=== PATIENT | female | born 1940 | race Caucasian/White ===

== ENCOUNTER 2016-12-04 18:30 | Emergency (ER) | payer MEDICARE, MEDICAID ==
[2016-12-04] MEDS ORDERED: Albuterol/Ipratropium Neb 3 ML NEB NEB ONE (18:34)
[2016-12-04] MEDS ORDERED: SODIUM CHLORIDE 0.9% 10 ML FLUSH FLUSH PRN (18:34)
[2016-12-04] MEDS ORDERED: METHYLPREDNISOLONE 125 MG/2 ML VIAL IV ONE (18:34)
--- NOTE | 2016-12-04 18:40 | EDPRACDOC ---
- General Information Information Source: Patient Mode Of Arrival: Ambulance - History of Present Illness Onset: today Exact Onset of Symptoms: Unknown HPI: Pt sent to ED for low hgb and bp. Pt c/o white productive cough, sob, R neck and back pain, generalized weakness. Denies congestion, cp, abd pain, n/v, changes in bowel or bladder, leg swelling. Symptoms Started: Reports: Gradually Symptoms Description: Constant Weakness: Bilateral: Generalized Symptoms: Reports: Weak Symptom Severity: Reports: Unable to performs ADL's Relevant History of: Reports: Anemia Associated signs and symptoms:: Reports: None <Pat Blanco E - Last Filed: 12/04/16 19:23> <Rissa Cunha - Last Filed: 12/04/16 20:34> - General Information Stated Complaint: ABNORMAL LABS Time Seen by Provider: 12/04/16 18:34 Home Medications: Home Medications PEG-Electrolytes (Miralax) [Miralax] 17 gm PO DAILY PRN 04/27/15 Atorvastatin Calcium [Lipitor] 40 mg PO QHS 10/14/15 Fluticasone/Salmeterol [Advair 250-50 Diskus] 1 puff INH Q12H 10/14/15 Lorazepam [Ativan] 2 mg PO TID #90 tablet 11/22/15 Ondansetron HCl [Zofran] 4 mg PO Q8H PRN 01/20/16 Pantoprazole Sodium [Protonix] 40 mg PO BID 01/20/16 Acetaminophen [Tylenol] 650 mg PO Q6H PRN 09/25/16 Albuterol/Ipratropium Neb [Duoneb] 3 ml NEB Q6H PRN 09/25/16 Bismuth Subsalicylate [Bismuth] 30 ml PO Q6H PRN 09/25/16 Fluticasone Propionate [Flonase] 2 spray RONALD DAILY 09/25/16 Joseph-3/Dha/Epa/Fish Oil [Fish Oil 500 mg Softgel] 1,000 mg PO TID 09/25/16 Oxcarbazepine [Trileptal] 150 mg PO QAM 09/25/16 Polyvinyl Alcohol [Liquitears] 1 drop OD TID 09/25/16 Senna Concentrate [Senokot] 2 tab PO BID PRN 09/25/16 Trazodone HCl 100 mg PO QHS 09/25/16 Venlafaxine HCl [Effexor Xr] 75 mg PO DAILY 09/25/16 Venlafaxine HCl [Effexor Xr] 150 mg PO DAILY 09/25/16 Albuterol/Ipratropium Neb [Duoneb] 3 ml NEB QID 10/02/16 Cholecalciferol (Vitamin D3) [Vitamin D3] 50,000 unit PO QMONTH 10/02/16 Gabapentin [Neurontin] 600 mg PO BID 10/02/16 Guaifenesin [Guaifenesin ER] 600 mg PO Q12H 10/02/16 Lactobacillus Acidophilus [Florajen] 460 mg PO BID 10/02/16 Potassium Chloride 10 meq PO DAILY 10/02/16 Morphine Sulfate [Ms Contin] 15 mg PO BID #60 tablet.er 10/05/16 Oxycodone HCl [Roxicodone] 7.5 mg PO Q6H PRN #20 tablet 10/05/16 Ascorbate Calcium [Vitamin C] 500 mg PO DAILY 12/04/16 Clindamycin HCl 300 mg PO TID #30 capsule 12/04/16 Ferrous Sulfate [Iron] 325 mg PO BID 12/04/16 Oxcarbazepine [Trileptal] 300 mg PO QHS 12/04/16 Polyethylene Glycol 3350 [Miralax] 17 gm PO DAILY 12/04/16 Allergies/Adverse Reactions: Allergies Allergy/AdvReac Type Severity Reaction Status Date / Time No Known Allergies Allergy Verified 10/02/16 12:59 ED Past Medical History - History Reviewed Yes Nurses notes reviewed and agree except as marked - Patient Medical History Neurological History: Reports: Dementia Cardiac History: Reports: Hypertension, Congestive Heart Failure, Cardiac Catheterization, Hypercholesterolemia Respiratory History: Reports: Asthma, COPD, Chronic Bronchitis, Pneumonia, Pulmonary Embolism GI/ History: Reports: Urinary Tract Infection, Kidney Stones, Gastroesophageal Reflux (sees Dr. Wolff. GI bleed 2013, capsule endoscopy @ [facility]. [facility].), Diverticulosis. Denies: Renal Disease Musculoskeletal History: Reports: Arthritis, Rheumatoid Arthritis, Osteoarthritis Psychological History: Reports: Depression, Anxiety, Bipolar Disorder. Denies: Substance Use Disorder Systemic History: Reports: Anemia (multiple GI bleeds; cannot tolerate Xarelto due to GI bleeds.), Hypothyroidism. Denies: Cancer Surgical History: Reports: Cholecystectomy, Hysterectomy, Cardiac Catheterization - Family Medical History Reports: Hypertension, Diabetes (mother), Cardiac Disorders (Father of [place]. Brother with heart disease.). Denies: Cancer (no family history of colon cancer ), Stroke - Social Medical History Smoking Status: Never smoker Social History: Denies: Substance Use Disorder ETOH: None Substance Abuse: None <Pat Blanco - Last Filed: 12/04/16 19:23> EDM Review of Systems - Review of Systems Constitutional: Weakness Ears: No Symptoms Reported. negative: Pain, Hearing Loss, Drainage, Ear Pulling Throat: No Symptoms Reported. negative: Pain, Swelling Nose: No Symptoms Reported. negative: Congestion, Bleeding, Discharge, Injection, Swelling, Deformity, Ecchymosis, Tender, Abrasion, Laceration Mouth: No Symptoms Reported. negative: Pain, Drooling Respiratory: Cough, Shortness of Breath Cardiovascular: No Symptoms Reported. negative: Chest Pain, Palpitations, Syncope, Edema, Orthopnea, PND, Skin Mottling, Cyanosis Gastrointestinal: No Symptoms Reported. negative: Pain, Constipation, Nausea, Vomiting, Diarrhea, Melena, Formula Intolerance Genitourinary: No Symptoms Reported. negative: Dysuria, Hematuria, Frequency, Discharge, Bleeding, Testicular Pain, Neurological: No Symptoms Reported. negative: Headache, Dizziness, Seizure, Numbness, Weakness, Speech Difficulty, Gait Difficulty Musculoskeletal: Back Integumentary: Rash Allergic/Immunologic: No Symptoms Reported. negative: Hives, Itching Hematologic: No Symptoms Reported. negative: Lymphadenopathy, Easy Bruising, Easy Bleeding Psychiatric: No Symptoms Reported. negative: Anxiety, Depression, Hallucinations, Insomnia, Suicidal <Pat Blanco Bruce - Last Filed: 12/04/16 19:23> - Physical Exam Constitutional: Alert Oriented to: Person, Place Last recorded Vital Signs: Oxygen Pulse Oxygen Saturation O2 Device Oxygen Flow Rate Fraction of Inspired Oxygen ( FIO2) - HEENT Head: Normal ( normocephalic) Eye Exam: Normal (PERRL, EOMI, Sclera white) Oropharynx: Normal (Pharynx:Moist without exudate,Gums-no swelling) Nose: No Symptoms Reported (septum midline) Neck: Normal (FROM, trachea at midline) - Respiratory/Cardiovascular Respiratory: Rhonchi, Wheezes Cardiovascular: Tachycardia - GI Auscultation: Normal (NABS) Palpation: Normal (Soft,No rebound or guarding, non distended) Tenderness: Non tender Rectal Exam: Heme negative stool Stool: Tarry - Musculoskeletal Back: Normal (Non-Tender) Extremities: Normal (Normal tone, Pulses 2+ No cyanosis or edema, FROM) - Integumentary Skin: Normal, Warm, Dry, Other (R neck, chest and upper back) Lymphatics: Normal (no adenopathy) - Neurologic Memory Impaired: Normal Motor Function: Normal (Normal tone, Pulses 2+ No cyanosis or edema, FROM) Mood Description: Normal Perception: Normal <Pat Blanco - Last Filed: 12/04/16 19:23> - Physical Exam Last recorded Vital Signs: Last Vital Signs Temp 99.6 F 12/04/16 18:30 Pulse 103 12/04/16 19:30 Resp 18 12/04/16 19:30 BP 150/73 12/04/16 19:30 Pulse Ox 94 12/04/16 19:30 Oxygen Pulse Oxygen Saturation 94 O2 Device Nasal Cannula Oxygen Flow Rate 2 Fraction of Inspired Oxygen ( FIO2) <Rissa Cunha - Last Filed: 12/04/16 20:34> - Differential Diagnosis Anemia, Dehydration, Dysrhythmia, Electrolyte disorder, Hypoxemia, Other ( cellulitis, sepsis, PNA) - Results 12/04/16 19:02 12/04/16 19:02 - EKG EKG #1 EKG Time: 19:21 Rate: bpm: 107 [place]: Normal Rhythm: ST Block: None ST: Normal - Diagnostic Imaging Chest Image interpreted by: Radiologist FINDINGS: Known large hiatal hernia. Heart size and vascular pattern normal. Left lung is clear. Band of opacity laterally right upper lobe likely represents a combination of scarring and subsegmental atelectasis. A right PICC line has been placed, which extends through the subclavian vein, briefly enters and loops within the internal jugular vein and then distends in the superior vena cava, with tip terminating about 2.4 cm above the cavoatrial junction. IMPRESSION: Improper position of right PICC line as described above. Increased opacity right upper lobe likely representing combination of subsegmental atelectasis and scarring although there is a somewhat nodular component to this. Recommend attention to this area on anticipated followup chest radiographs. If this area persists a CT thorax would be suggested. - Additional Information Final disposition of care given to Dr Cunha at 1925 <Pat Blanco E - Last Filed: 12/04/16 19:23> - Re-evaluation Re-evaluation 3 Re-evaluation Time: 20:33 PATIENT EATING AND DRINKING WELL, NO NAUSEA VOMITING OR DIARRHEA. SHE HAS NO PAIN. NO CHEST PAIN OR SHORTNESS OF BREATH NO ABDOMINAL PAIN. PATIENT REQUESTED TRANSFER BACK TO [facility]. THINK THIS IS REASONABLE.[facility] , WILL FOLLOW CULTURE. - Results 12/04/16 19:02 12/04/16 19:02 WBC 13.9 xk/uL (3.8-10.8) H 12/04/16 19:02 RBC 3.29 xM/uL (4.20-5.40) L 12/04/16 19:02 Hgb 8.5 g/dL (12.0-16.0) L 12/04/16 19:02 Hct 26.8 % (36-47) L 12/04/16 19:02 MCV 82 fL (81-99) 12/04/16 19:02 MCH 25.8 pg (27-32) L 12/04/16 19:02 MCHC 31.7 g/dl (33-36) L 12/04/16 19:02 RDW 17.3 % (11.5-14.5) H 12/04/16 19:02 Plt Count 264 xk/uL (130-400) 12/04/16 19:02 MPV 7.8 fL (7.4-10.4) 12/04/16 19:02 Neut % (Auto) 62.7 % (45-76) 12/04/16 19:02 Lymph % (Auto) 21.7 % (17-44) 12/04/16 19:02 Mercer % (Auto) 13.6 % (3-10) H 12/04/16 19:02 Eos % (Auto) 1.6 % (0-5) 12/04/16 19:02 Baso % (Auto) 0.4 % (0-2) 12/04/16 19:02 Absolute Neuts (auto) 8.62 xk/uL (1.7-8.2) H 12/04/16 19:02 Absolute Lymphs (auto) 2.92 xk/uL (0.65-4.75) 12/04/16 19:02 PT 11.0 SEC (9.2-11.2) 12/04/16 19:02 INR 1.1 12/04/16 19:02 APTT 27.6 SEC (22-35) 12/04/16 19:02 Puncture Site Right radial 12/04/16 18:43 pH 7.390 pH UNITS (7.35-7.45) 12/04/16 18:43 pCO2 55.0 mmHg (35-45) H 12/04/16 18:43 pO2 76.0 mmHg (80-100) L 12/04/16 18:43 HCO3 33.3 MMOL/L (22-26) H 12/04/16 18:43 Total CO2 35.0 MMOL/L (23-27) H 12/04/16 18:43 Base Excess 6.7 (+/- 2) H 12/04/16 18:43 FiO2 % 2lpm nc 12/04/16 18:43 Specimen Drawn By [employer] 12/04/16 18:43 Sodium 134 mEq/L (137-146) L 12/04/16 19:02 Potassium 4.1 mEq/L (3.5-5.1) 12/04/16 19:02 Chloride 95 mEq/L (98-107) L 12/04/16 19:02 Carbon Dioxide 32 mMOL/L (22-33) 12/04/16 19:02 Anion Gap 11 mEq/L (8-16) 12/04/16 19:02 BUN 12 MG/DL (7-17) 12/04/16 19:02 Creatinine 0.70 MG/DL (0.52-1.04) 12/04/16 19:02 Estimated GFR (MDRD) > 60 mL/min (>=60) 12/04/16 19:02 Glucose 139 mg/dL (70-99) H 12/04/16 19:02 Calculated Osmolality 260 MOs/Kg (270-290) L 12/04/16 19:02 Lactic Acid 0.8 mEq/L (0.7-2.1) 12/04/16 19:02 Calcium 9.1 MG/DL (8.4-10.2) 12/04/16 19:02 Corrected Calcium 9.8 MG/DL (8.4-10.2) 12/04/16 19:02 Total Bilirubin 0.3 MG/DL (0.2-1.3) 12/04/16 19:02 AST 14 IU/L (14-36) 12/04/16 19:02 ALT 19 IU/L (9-52) 12/04/16 19:02 Alkaline Phosphatase 73 IU/L (55-165) 12/04/16 19:02 Creatine Kinase < 20 IU/L (30-134) L 12/04/16 19:02 Troponin I < 0.01 ng/mL (<.04) 12/04/16 19:02 Ljb-Z-Ufkdiowooiw Pept 271 pg/mL (0-1800) 12/04/16 19:02 Total Protein 6.5 G/DL (6.3-8.2) 12/04/16 19:02 Albumin 3.3 G/DL (3.5-5.0) L 12/04/16 19:02 Urine Color Yellow 12/04/16 19:30 Urine Clarity Sl cldy 12/04/16 19:30 Urine pH 6.0 (5.0-8.0) 12/04/16 19:30 Ur Specific [place] 1.010 (1.003-1.035) 12/04/16 19:30 Urine Protein 1+ (NEG/TRACE) H 12/04/16 19:30 Urine Glucose (UA) Neg (NEGATIVE) 12/04/16 19:30 Urine Ketones Neg (NEGATIVE) 12/04/16 19:30 Urine Occult Blood 1+ (NEG/TRACE) H 12/04/16 19:30 Urine Nitrite Neg (NEGATIVE) 12/04/16 19:30 Urine Bilirubin Neg (NEGATIVE) 12/04/16 19:30 Urine Urobilinogen <2.0 MG/DL (0-1) 12/04/16 19:30 Ur Leukocyte Esterase 2+ (NEGATIVE) H 12/04/16 19:30 Urine RBC 2-5 (0-5) 12/04/16 19:30 Urine WBC Tntc (0-5) H 12/04/16 19:30 Urine WBC Clumps Present (NONE) H 12/04/16 19:30 Ur Epithelial Cells 1+ 12/04/16 19:30 Urine Bacteria 3+ (NEG/FEW) H 12/04/16 19:30 Lab Results 12/04/16 12/04/16 12/04/16 19:30 19:02 19:02 WBC 13.9 H RBC 3.29 L Hgb 8.5 L Hct 26.8 L MCV 82 MCH 25.8 L MCHC 31.7 L RDW 17.3 H Plt Count 264 MPV 7.8 Neut % (Auto) 62.7 Lymph % (Auto) 21.7 Mercer % (Auto) 13.6 H Eos % (Auto) 1.6 Baso % (Auto) 0.4 Absolute Neuts (auto) 8.62 H Absolute Lymphs (auto) 2.92 PT 11.0 INR 1.1 APTT 27.6 Puncture Site pH pCO2 pO2 HCO3 Total CO2 Base Excess FiO2 % Specimen Drawn By Sodium Potassium Chloride Carbon Dioxide Anion Gap BUN Creatinine Estimated GFR (MDRD) Glucose Calculated Osmolality Lactic Acid Calcium Corrected Calcium Total Bilirubin AST ALT Alkaline Phosphatase Creatine Kinase Troponin I Jha-Z-Dhexujwplog Pept Total Protein Albumin Urine Color Yellow Urine Clarity Sl cldy Urine pH 6.0 Ur Specific [place] 1.010 Urine Protein 1+ H Urine Glucose (UA) Neg Urine Ketones Neg Urine Occult Blood 1+ H Urine Nitrite Neg Urine Bilirubin Neg Urine Urobilinogen <2.0 Ur Leukocyte Esterase 2+ H Urine RBC 2-5 Urine WBC Tntc H Urine WBC Clumps Present H Ur Epithelial Cells 1+ Urine Bacteria 3+ H 12/04/16 12/04/16 12/04/16 19:02 19:02 18:43 WBC RBC Hgb Hct MCV MCH MCHC RDW Plt Count MPV Neut % (Auto) Lymph % (Auto) Mercer % (Auto) Eos % (Auto) Baso % (Auto) Absolute Neuts (auto) Absolute Lymphs (auto) PT INR APTT Puncture Site Right radial pH 7.390 pCO2 55.0 H pO2 76.0 L HCO3 33.3 H Total CO2 35.0 H Base Excess 6.7 H FiO2 % 2lpm nc Specimen Drawn By [employer] Sodium 134 L Potassium 4.1 Chloride 95 L Carbon Dioxide 32 Anion Gap 11 BUN 12 Creatinine 0.70 Estimated GFR (MDRD) > 60 Glucose 139 H Calculated Osmolality 260 L Lactic Acid 0.8 Calcium 9.1 Corrected Calcium 9.8 Total Bilirubin 0.3 AST 14 ALT 19 Alkaline Phosphatase 73 Creatine Kinase < 20 L Troponin I < 0.01 Kmg-D-Okbtwljfpsm Pept 271 Total Protein 6.5 Albumin 3.3 L Urine Color Urine Clarity Urine pH Ur Specific [place] Urine Protein Urine Glucose (UA) Urine Ketones Urine Occult Blood Urine Nitrite Urine Bilirubin Urine Urobilinogen Ur Leukocyte Esterase Urine RBC Urine WBC Urine WBC Clumps Ur Epithelial Cells Urine Bacteria - Additional Information I HAVE REVIEWED CHEST X-RAY RESULTS: 1. IN PROPER POSITION OF PICC LINE, THE ONLY ABNORMALITY REGARDING THE PICC LINE PLACEMENT IS THE LOOP WHERE IT ASCENDS BEFORE IT DESCENDS. THE DISTAL TIP OF THE PICC LINE IS IN ADEQUATE PLACEMENT. I DO NOT THINK THERE IS ANY CLINICAL REASON FOR REPLACEMENT OF THIS AT THIS TIME. 2. THE RIGHT UPPER LOBE NODULARITY DOES REPORT AN X-RAY PROBABLY CORRELATES TO THE CELLULITIS RIGHT ANTERIOR SUPERIOR CHEST WALL. I DO NOT THINK THERE IS A PNEUMONIA. WITH REGARDS TO THE ANEMIA: HEMOGLOBIN IS STABLE, IT IS ACTUALLY TRENDING UP FROM BLOOD TEST SEVERAL DAYS AGO. IT IS GREATER THAN 8 AND NO INDICATION OF BLOOD LOSS (GUIAC NEG, PRIOR GI W/U NEG, H/O ANEMIA) <Rissa Cunha - Last Filed: 12/04/16 20:34> <Pat Blanco - Last Filed: 12/04/16 19:23> - Departure Disposition: Retirement Facility Education/Counseling Given To: Patient Education/Counseling Given Regarding: Diagnosis, Prognosis <Rissa Cunha - Last Filed: 12/04/16 20:34> - Departure Final Diagnosis: RIGHT ANTERIOR WALL CELLULITIS Anemia Qualifiers: Anemia type: other cause Other causes of anemia: other cause, not classified Qualified Code(s): D64.89 - Other specified anemias Referrals: None,No Provider [NonStaff] - One Week Prescriptions: New Clindamycin HCl 300 mg PO TID #30 capsule No Action PEG-Electrolytes (Miralax) [Miralax] 17 gm PO DAILY PRN PRN Reason: Constipation Fluticasone/Salmeterol [Advair 250-50 Diskus] 1 puff INH Q12H Atorvastatin Calcium [Lipitor] 40 mg PO QHS Lorazepam [Ativan] 2 mg PO TID #90 tablet Ondansetron HCl [Zofran] 4 mg PO Q8H PRN PRN Reason: Nausea Pantoprazole Sodium [Protonix] 40 mg PO BID Acetaminophen [Tylenol] 650 mg PO Q6H PRN PRN Reason: Fever Trazodone HCl 100 mg PO QHS Senna Concentrate [Senokot] 2 tab PO BID PRN PRN Reason: Constipation Bismuth Subsalicylate [Bismuth] 30 ml PO Q6H PRN PRN Reason: Diarrhea Oxcarbazepine [Trileptal] 150 mg PO QAM Polyvinyl Alcohol [Liquitears] 1 drop OD TID Albuterol/Ipratropium Neb [Duoneb] 3 ml NEB Q6H PRN PRN Reason: Shortness Of Breath Joseph-3/Dha/Epa/Fish Oil [Fish Oil 500 mg Softgel] 1,000 mg PO TID Fluticasone Propionate [Flonase] 2 spray RONALD DAILY Venlafaxine HCl [Effexor Xr] 75 mg PO DAILY Venlafaxine HCl [Effexor Xr] 150 mg PO DAILY Potassium Chloride 10 meq PO DAILY Lactobacillus Acidophilus [Florajen] 460 mg PO BID Albuterol/Ipratropium Neb [Duoneb] 3 ml NEB QID Guaifenesin [Guaifenesin ER] 600 mg PO Q12H Gabapentin [Neurontin] 600 mg PO BID Cholecalciferol (Vitamin D3) [Vitamin D3] 50,000 unit PO QMONTH Morphine Sulfate [Ms Contin] 15 mg PO BID #60 tablet.er Oxycodone HCl [Roxicodone] 7.5 mg PO Q6H PRN #20 tablet PRN Reason: Pain Ascorbate Calcium [Vitamin C] 500 mg PO DAILY Ferrous Sulfate [Iron] 325 mg PO BID Oxcarbazepine [Trileptal] 300 mg PO QHS Polyethylene Glycol 3350 [Miralax] 17 gm PO DAILY
[2016-12-04 18:42] VITALS: BMI 31.1
[2016-12-04 18:48] LABS: ABG Draw Site Right Radial; ALLEN'S TEST PASS; BEb 6.7 (+/- 2)
--- NOTE | 2016-12-04 18:54 | DIRPT ---
CLINICAL DATA: Sepsis EXAM: PORTABLE CHEST 1 VIEW COMPARISON: 10/03/2016, 10/02/2016 FINDINGS: Known large hiatal hernia. Heart size and vascular pattern normal. Left lung is clear. Band of opacity laterally right upper lobe likely represents a combination of scarring and subsegmental atelectasis. A right PICC line has been placed, which extends through the subclavian vein, briefly enters and loops within the internal jugular vein and then distends in the superior vena cava, with tip terminating about 2.4 cm above the cavoatrial junction. IMPRESSION: Improper position of right PICC line as described above. Increased opacity right upper lobe likely representing combination of subsegmental atelectasis and scarring although there is a somewhat nodular component to this. Recommend attention to this area on anticipated followup chest radiographs. If this area persists a CT thorax would be suggested. These results will be called to the ordering clinician or wireless sales representative by the Radiologist [employer] Repairer, and communication documented in the PACS or [employer] Dashboard. Electronically Signed By: Carlos Alberto Graham M.D. On: 12/04/2016 18:52
[2016-12-04 19:28] LABS: AUTOMATED BASOPHIL 0.4 % (0-2); AUTOMATED EOSINOPHIL 1.6 % (0-5); AUTOMATED LYMPH 21.7 % (17-44); AUTOMATED MONOCYTE 13.6 % (3-10); AUTOMATED NEUTROPHIL 62.7 % (45-76); MPV 7.8 fL (7.4-10.4)
[2016-12-04 19:31] LABS: PARTIAL THROMB. TIME 27.6 SEC (22-35); PT-INR 1.1
[2016-12-04 19:34] LABS: BLOOD UREA NITROGEN 12 MG/DL (7-17); CALC CORRECTED 9.8 MG/DL (8.4-10.2); CALCIUM 9.1 MG/DL (8.4-10.2); CALCULATED OSMOLALITY 260 MOs/Kg (270-290); CHLORIDE 95 mEq/L (98-107); CPK TOTAL WITH POSSIBLE MB < 20 IU/L (30-134); GLUCOSE 139 mg/dL (70-99); SODIUM LEVEL 134 mEq/L (137-146); TOTAL PROTEIN 6.5 G/DL (6.3-8.2)
[2016-12-04 19:52] LABS: LEUKOCYTES/URINE 2+ (NEGATIVE); NITRITE/URINE NEG (NEGATIVE); URINE OCCULT BLOOD 1+ (NEG/TRACE); WBC/URINE TNTC (0-5)
[2016-12-04] MEDS ORDERED: Clindamycin 600 mg/D5W 50 ml 600 MG/50 ML IVB IV ONE (21:00)
[2016-12-04] MEDS ORDERED: HEPARIN 500 UNITS/5 ML (100 UNITS/ML) SYR FLUSH ONE (21:13)
[2016-12-04 21:24] VITALS: BP 146/73; PULSE 103; TEMP 98.1
== END 2016-12-04 21:22 ==
LOC: ED 18:30
DX: L03.313 Cellulitis of chest wall (principal); D64.89 Other specified anemias
CPT/HCPCS: 36415; 36600; 71010; 80053; 81001; 82550; 82803; 83605; 83880; 84484; 85025; 85610; 85730; 86850; 86900; 86901; 87040; 87077; 87086; 87186; 93005; 94640; 96365; 96375; 99284; J1642; J2930; J3490; J7620